=== PATIENT | female | born 1945 | race Hispanic/Latino ===

== ENCOUNTER 2021-08-28 21:41 | Emergency (ER) | payer MEDICARE, OTHER ==
[~2021-08-28] VITALS: Ht 160 cm; Wt 70.3 kg
[2021-08-28] MEDS ORDERED: LIDOCAINE HCL 1% LOCAL INJ 20 ML VIAL INJ STA (21:54)
[2021-08-28] MEDS ORDERED: CEPHALEXIN 500 MG CAP PO STA (22:53)
[2021-08-28] MEDS ORDERED: ULTRAM 50MG50 MG PO (22:58)
[2021-08-28] MEDS ORDERED: CEPHALEXIN500 MG PO (22:58)
[2021-08-28 23:23] VITALS: BP 115/79
== END 2021-08-28 23:24 | disposition home or self-care (01) ==
LOC: ER 21:54
DX: S62.632B Displaced fracture of distal phalanx of right middle finger, initial encounter for open fracture (principal); W23.1XXA Caught, crushed, jammed, or pinched between stationary objects, initial encounter; Y92.89 Other specified places as the place of occurrence of the external cause
CPT/HCPCS: 12001; 73140; 99283; J2001